=== PATIENT | male | born 1970 | race Caucasian/White ===

== ENCOUNTER 2017-09-11 12:51 | Outpatient (CLI) | payer BC | END 2017-09-11 12:52 | disposition home or self-care (01) | LOC: BICRAD 12:51 | PROVIDERS: ATTEND Nurse Practitioner Family | DX: M54.9 Dorsalgia, unspecified (principal); M47.816 Spondylosis without myelopathy or radiculopathy, lumbar region | CPT/HCPCS: 72100 ==

== ENCOUNTER 2023-04-13 08:48 | Outpatient (CLI) | payer BC | END 2023-04-13 08:49 | disposition home or self-care (01) | LOC: ULT 08:48 | PROVIDERS: ATTEND Student in an Organized Health Care Education/Training Program | DX: R10.11 Right upper quadrant pain (principal); K80.20 Calculus of gallbladder without cholecystitis without obstruction | CPT/HCPCS: 76705 ==